=== PATIENT | male | born 1945 | race Caucasian/White ===

== ENCOUNTER → 2016-12-29 | Outpatient (CLI) | payer OTHER ==
--- NOTE | 2016-12-29 16:50 | PCVCIMAG ---
APPROVED REPORT Exam: Stress Echocardiogram Indication: CAD s/p CABG, Hypertension, Bradycardia Patient Location: Echo lab Stress Nurse: Dora Ivna RN Status: routine Ht: 5 ft 9 in HR: 69 bpm BP: 126/72 mmHg Rhythm: NSR Procedure The patient underwent an Exercise Stress Test using the Atul Protocol. Blood pressure, heart rate, and EKG were monitored. An Echocardiogram was performed by mix technician in four stages in quad fashion. At peak stress, four selected images were obtained and placed side by side with resting images for comparison. Stress Test Details Stress Test: Exercise stress testing was performed using a Atul protocol. HR Resting HR: 69 bpmMax Heart Rate (APMHR): 150 bpm Max HR Achieved: 139 bpmTarget HR (85% APMHR): 127 bpm % of APMHR: 92 Recovery HR: 98 bpm HR response to stress: Normal HR response to stress BP Resting BP: 126/72 mmHg Max BP: 204/80 mmHg Recovery BP: 178/80 mmHg ECG Resting ECG: Sinus Rhythm with isolated PVCs Stress ECG: Sinus Rhythm with isolated PVCs ST Change: Normal Maximum ST Deviation: 0 mm Recovery ECG: Sinus Rhythm Recovery ST Change: Normal Recovery ST Deviation: 0 mm Recovery Arrhythmia: PACs Clinical Reason for Termination: Maximal effort Stress Symptoms: Dyspnea Exercise duration: 10 min 32 sec Highest Stage Achieved: Stage 4: 4.2 mph at 16% grade. Exercise capacity: 13.4 METs Overall Exercise Capacity for Age: Good Angina Score: None Stress ECG Conclusion Clinical: Non-ischemic ECG: Non-ischemic Mitchell Treadmill Score is 10.0 which is Low risk. Pre-Stress Echo The resting Echocardiogram showed normal left ventricular contractility with an estimated Ejection Fraction of about >55%. Normal wall motion in all segments on baseline images. Post-Stress Echo The stress Echocardiogram showed normal left ventricular contractility with an estimated Ejection Fraction of about 65%. Normal augmentation of wall motion in all segments on post stress images. Clinical No clinical or ECG evidence for ischemia. Conclusion Clinical Response: Non-ischemic Stress ECG Response: Non-ischemic Stress Echo Images: Non-ischemic The left ventricle is normal in size and wall thickness in both the rest and stress images. Other Information Study Quality: Adequate <Conclusion> The left ventricle is normal in size and wall thickness in both the rest and stress images.
== END | disposition home or self-care (01) ==
LOC: PCVCIMAG 14:51
PROVIDERS: ATTEND Internal Medicine
DX: I25.10 Atherosclerotic heart disease of native coronary artery without angina pectoris (principal); I10 Essential (primary) hypertension; E78.5 Hyperlipidemia, unspecified; R00.1 Bradycardia, unspecified; Z82.49 Family history of ischemic heart disease and other diseases of the circulatory system; Z95.1 Presence of aortocoronary bypass graft
CPT/HCPCS: 93005; 93325; 93351

== ENCOUNTER → 2018-04-09 | Outpatient (CLI) | payer OTHER ==
--- NOTE | 2018-04-09 12:34 | PCVCIMAG ---
APPROVED REPORT Study performed: 04/09/2018 10:22:14 Exam: Stress Echocardiogram Indication: CAD s/p CABG, Hypertension Patient Location: Echo lab Stress Nurse: Dora Ivan RN Room #: 2 Status: routine Ht: 5 ft 8 in HR: 71 bpm BP: 140/76 mmHg Rhythm: NSR Medical History Medical History: CAD s/p CABG Cardiac Risk Factors: HTN Previous Cardiac Procedures: CABG Pretest Chest Pain Characteristics: No chest pain Exercise History: Physically active Procedure The patient underwent an Exercise Stress Test using the Jaylon Protocol. Blood pressure, heart rate, and EKG were monitored. An Echocardiogram was performed by mosaic technician in four stages in quad fashion. At peak stress, four selected images were obtained and placed side by side with resting images for comparison. Stress Test Details Stress Test: Exercise stress testing was performed using a Jaylon protocol. HR Resting HR: 71 bpmMax Heart Rate (APMHR): 149 bpm Max HR Achieved: 137 bpmTarget HR (85% APMHR): 126 bpm % of APMHR: 91 Recovery HR: 83 bpm HR response to stress: Normal HR response to stress BP Resting BP: 140/76 mmHg Max BP: 170/74 mmHg Recovery BP: 128/74 mmHg BP response to stress: Normal blood pressure response to stress. ECG Resting ECG: Sinus Rhythm Stress ECG: Sinus Rhythm ST Change: Non-ischemic Maximum ST Deviation: 0 mm Arrhythmia: None Recovery ECG: Sinus Rhythm Recovery ST Change: Non-ischemic Recovery ST Deviation: 0 mm Recovery Arrhythmia: None Clinical Reason for Termination: Maximal effort Stress Symptoms: none Exercise duration: 10 min 17 sec Highest Stage Achieved: Stage 4: 4.2 mph at 16% grade. Exercise capacity: 13.4 METs Overall Exercise Capacity for Age: Good Scale: Active Angina Score: None No complications. Stress ECG Conclusion The patient exercised according to the JAYLON protocol for 10:17 mins; achieving a work level of 13.4 METS. The resting heart rate of 71 bpm shanika to a maximum heart rate of 137 bpm. This value represent 91% of the maximal, age-predicted heart rate. The resting blood pressure of 140/76 mmHg, shanika to a maximum blood pressure of 170/74 mmHg. The exercise test was stopped due to fatigue. Mitchell Treadmill Score is 10.0 which is Low risk. Pre-Stress Echo The resting Echocardiogram showed normal left ventricular contractility with an estimated Ejection Fraction of about 55-60%. Normal wall motion in all segments on baseline images. Post-Stress Echo The stress Echocardiogram showed normal left ventricular contractility with an estimated Ejection Fraction of about 65-70%. Normal augmentation of wall motion in all segments on post stress images. Clinical No clinical or ECG evidence for ischemia. Conclusion Clinical Response: Non-ischemic Exercise Capacity: Superior Stress ECG Response: Non-ischemic Stress Echo Images: Non-ischemic No clinical, EKG or echocardiographic evidence for ischemia. No echocardiographic evidence for exercise induced ischemia. Normal stress echocardiogram with maximal exercise stress. <Conclusion> No clinical, EKG or echocardiographic evidence for ischemia. No echocardiographic evidence for exercise induced ischemia. Normal stress echocardiogram with maximal exercise stress.
== END | disposition home or self-care (01) ==
LOC: PCVCIMAG 12:45
PROVIDERS: ATTEND Internal Medicine
DX: I25.10 Atherosclerotic heart disease of native coronary artery without angina pectoris (principal); I10 Essential (primary) hypertension; Z95.1 Presence of aortocoronary bypass graft
CPT/HCPCS: 93325; 93351